=== PATIENT | female | born 1995 | race Caucasian/White ===

== ENCOUNTER 2017-07-02 10:54 | Emergency (ER) | payer MEDICAID ==
[~2017-07-02] VITALS: Ht 157.5 cm; Wt 81.7 kg
[~2017-07-02 10:54] MED LIST: AMOXICILLIN500 MG PO; BIRTH CONTROL; BUPROPION HCL150 M2 PO; CEPHALEXIN500 MG PO; CIPRO500 MG PO; COMPAZINE25 MG PR; FLUOXETINE HCL20 MG PO; IBUPROFEN600 MG PO; LIDOCAINE HCL100 ML MT; NAPROXEN500 MG PO; NORCO 5-325 TA1 EACH PO; NORTRIPTYLINE H25 MG PO; ORTHO TRI-CYCL1 EACH PO; PENICILLIN V P500 MG PO; PRENATAL VITAM1 EACH PO; PROZAC10 MG PO; SEPTRA DS TABL1 EACH PO; TRAMADOL HCL50 MG PO; TYLENOL WITH C1 EACH PO; ULTRAM50 MG PO; VISTARIL25 MG PO; ZOFRAN4 MG PO
[2017-07-02] MEDS ORDERED: MIRENA1 EACH (11:17)
[2017-07-02] MEDS ORDERED: DIFLUCAN150 MG PO (12:27)
== END 2017-07-02 12:55 | disposition home or self-care (01) ==
LOC: ED 10:54
DX: N76.0 Acute vaginitis (principal); F17.200 Nicotine dependence, unspecified, uncomplicated; Z91.040 Latex allergy status; Z88.8 Allergy status to other drugs, medicaments and biological substances; Z79.899 Other long term (current) drug therapy
CPT/HCPCS: 81001; 84703; 99284

== ENCOUNTER 2019-03-06 15:21 | Emergency (ER) | payer OTHER ==
[~2019-03-06] VITALS: Ht 157.5 cm; Wt 81.7 kg
[~2019-03-06 15:21] MED LIST changes: +DIFLUCAN150 MG PO; +MIRENA1 EACH
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
[2019-03-06] MEDS ORDERED: PROCTOFOAM-HC 110 GM PR (17:04)
== END 2019-03-06 17:17 | disposition home or self-care (01) ==
LOC: ED 15:21
DX: O99.612 Diseases of the digestive system complicating pregnancy, second trimester (principal); K62.5 Hemorrhage of anus and rectum; F17.200 Nicotine dependence, unspecified, uncomplicated; Z91.040 Latex allergy status; Z88.8 Allergy status to other drugs, medicaments and biological substances; Z3A.17 17 weeks gestation of pregnancy
CPT/HCPCS: 81001; 99283-25; 99406

== ENCOUNTER 2019-08-06 14:17 | Inpatient (IN) | payer OTHER ==
[~2019-08-06] VITALS: Ht 157.5 cm; Wt 86.0 kg
[~2019-08-06 14:17] MED LIST changes: +PROCTOFOAM-HC 110 GM PR
--- NOTE | 2019-08-07 08:39 | PR ---
[facility] [address], [place] [address] Signed Progress Notes IP Datetime Report Generated by CPN: 08/07/2019 08:38 PROGRESS NOTES: [id number] Impression: Normal progression of labor; Reassuring heart rate Procedures: Artificial ROM Plan: Continue present management Informed Consent Obtain: Vaginal Delivery VITAL SIGNS: [id number] Vital Signs: Reviewed; Within Normal Limits EXAM: [id number] Dilatation: 3.5 Effacement: 70 Station: -2 Uterine Contractions: None MEMBRANES: [id number] Membrane Status: Bulging ROM Note: Reviewed AROM in detail and verbal consent obtained. vertex noted to be well applied. AROM performed without difficulty for moderate amount clear fluid. Pt and baby tolerated well. Comments: Pt seen and examined. Verted well applied to cervix and AROM easily performed. Will expectantly manage. Discussed indication for pitocin augmentation Fetus A: [id number] FHR Baseline: 120 Variability: Moderate 6-25bpm Accelerations: 15X15 Decelerations: None FHR Category: Category I Presentation: Vertex Comments on Fetus A: No evidence of metabolic acidosis Fetus B: [id number] Signing Physician: Parul Wheat DO Copies: ~ *Electronically Signed* 08/07/19 0838 PARUL WHEAT DO PATIENT NAME: SÁNCHEZ ANTOINE KAMLESH PROGRESS NOTE DATE OF : 95 PHYSICIAN: PARUL WHEAT DO RPT #: [id number] REPORT IS CONFIDENTIAL AND NOT TO BE RELEASED WITHOUT AUTHORIZATION
--- NOTE | 2019-08-07 12:15 | PR ---
[facility] [address], [place] [address] Signed Progress Notes IP Datetime Report Generated by CPN: 08/07/2019 12:15 PROGRESS NOTES: [id number] Impression: Reassuring heart rate Procedures: Artificial ROM Plan: Continue present management Informed Consent Obtain: Vaginal Delivery VITAL SIGNS: [id number] Vital Signs: Reviewed; Within Normal Limits EXAM: [id number] Dilatation: 4.0 Effacement: 80 Station: -2 Uterine Contractions: rare MEMBRANES: [id number] Membrane Status: Bulging ROM Note: Reviewed AROM in detail and verbal consent obtained. vertex noted to be well applied. AROM performed without difficulty for moderate amount clear fluid. Pt and baby tolerated well. Comments: Pt seen and evaluated. Doing well. Rare contractions. Due for cervix check in _ 1 hr. If unchanged, will start low dose pit per protocol. Pt understands and agrees. Fetus A: [id number] FHR Baseline: 120 Variability: Moderate 6-25bpm Accelerations: 15X15 Decelerations: None FHR Category: Category I Presentation: Vertex Comments on Fetus A: No evidence of metabolic acidosis Fetus B: [id number] Signing Physician: Parul Wheat DO Copies: ~ *Electronically Signed* 08/07/19 7451 PARUL WHEAT DO PATIENT NAME: SÁNCHEZ ANTOINE KAMLESH PROGRESS NOTE DATE OF : 95 PHYSICIAN: PARUL WHEAT #: [id number] REPORT IS CONFIDENTIAL AND NOT TO BE RELEASED WITHOUT AUTHORIZATION
--- NOTE | 2019-08-07 17:22 | PR ---
[facility] [address], [place] [address] Signed Progress Notes IP Datetime Report Generated by KARLY: 08/07/2019 17:22 PROGRESS NOTES: [id number] Impression: Slow Progression of Labor Procedures: Intrauterine Pressure Catheter; Sterile Vag Exam Plan: Continue present management; Augmentation; Anesthesia consult Informed Consent Obtain: Vaginal Delivery VITAL SIGNS: [id number] Vital Signs: Reviewed; Within Normal Limits EXAM: [id number] Dilatation: 4.0 Effacement: 80 Station: -2 Uterine Contractions: rare MEMBRANES: [id number] Membrane Status: Bulging ROM Note: Reviewed AROM in detail and verbal consent obtained. vertex noted to be well applied. AROM performed without difficulty for moderate amount clear fluid. Pt and baby tolerated well. Comments: Pt seen and examined. Doing well. Cervix unchanged despite pitocin augmentation. Discussed IUPC to improve uterine evaluation. Pt understands and agrees and IUPC placed without difficulty. Will continue to increase pitocin per protocol until adequate contractions noted. Fetus A: [id number] FHR Baseline: 125 Variability: Moderate 6-25bpm Accelerations: 15X15 Decelerations: None FHR Category: Category I Presentation: Vertex Comments on Fetus A: No evidence of metabolic acidosis Fetus B: [id number] Signing Physician: Parul Wheat DO Copies: ~ *Electronically Signed* 08/07/19 4786 PARUL WHEAT DO PATIENT NAME: SÁNCHEZ ANTOINE KAMLESH PROGRESS NOTE DATE OF : 95 PHYSICIAN: PARUL WHEAT DO RPT #: [id number] REPORT IS CONFIDENTIAL AND NOT TO BE RELEASED WITHOUT AUTHORIZATION
--- NOTE | 2019-08-07 20:39 | PR ---
[facility] [address] [place] [address], [place] [address] Signed Progress Notes IP Datetime Report Generated by KARLY: 08/07/2019 20:39 PROGRESS NOTES: [id number] Impression: Normal progression of labor; Reassuring heart rate Procedures: Sterile Vag Exam Plan: Continue present management; Anticipate Vaginal Delivery Informed Consent Obtain: Vaginal Delivery VITAL SIGNS: [id number] Vital Signs: Reviewed; Within Normal Limits EXAM: [id number] Dilatation: 10.0 Effacement: 100 Station: 1 Uterine Contractions: q2 min MEMBRANES: [id number] Membrane Status: Bulging ROM Note: Reviewed AROM in detail and verbal consent obtained. vertex noted to be well applied. AROM performed without difficulty for moderate amount clear fluid. Pt and baby tolerated well. Comments: Pt seen and examined. Becoming uncomfortable w/ contractions. Using nitrous to some effect. Pt now 10cm and +1 station. Anticipate soon. Will set up for delivery Fetus A: [id number] FHR Baseline: 120 Variability: Moderate 6-25bpm Accelerations: 15X15 Decelerations: Variable FHR Category: Category II Presentation: Vertex Comments on Fetus A: No evidence of metabolic acidosis Fetus B: [id number] Signing Physician: Parul Wheat DO Copies: ~ *Electronically Signed* 08/07/192038 PARUL WHEAT DO PATIENT NAME: SÁNCHEZ ANTOINE KAMLESH PROGRESS NOTE DATE OF : 95 PHYSICIAN: PARUL WHEAT DO [facility] #: [id number] REPORT IS CONFIDENTIAL AND NOT TO BE RELEASED WITHOUT AUTHORIZATION
--- NOTE | 2019-08-08 13:55 | PR ---
[facility] [address] [facility] [place], [place] [address] Signed PP Progress Notes Datetime Report Generated by CPN: 08/08/2019 13:55 SUBJECTIVE: [id number] Pain: Within normal limits Nausea/Vomiting: Denies Flatus: Yes Bowel Movement: No Vital Signs: V7025492 Vital Signs: Reviewed; Within Normal Limits EXAM: [id number] Cardiovascular: Normal Respiratory: Normal Abdomen/Uterus: Normal Lochia: Normal Vulva/Perineum: Not Done Breasts: Not Done CVA Tenderness: Normal Extremities: Normal Incision: Not Applicable Progress: Not Applicable Exam Comments: Fundus firm U-2 nontender IMPRESSION/PLAN/PROCEDURES: [id number] Impression: Normal progression Plan: Discharge Procedures: Rhogam Progress Notes: Pt seen and examined. Doing well. Ambulating, voiding, and tolerating full diet. Pain and lochia minimal. Bottle feeding. No fevers/chills/other concerns. Planning Mirena for contraception Signing Physician: Parul Wheat DO Copies: ~ *Electronically Signed* 08/08/19 1358 PARUL WHEAT DO PATIENT NAME: SÁNCHEZ ANTOINE KAMLESH PROGRESS NOTE DATE OF : 95 PHYSICIAN: PARUL WHEAT DO RPT #: [id number] REPORT IS CONFIDENTIAL AND NOT TO BE RELEASED WITHOUT AUTHORIZATION
== END 2019-08-08 21:15 | disposition home or self-care (01) | DRG 807 ==
LOC: FBC 08-07 05:40
PROVIDERS: ADMIT Obstetrics & Gynecology
PROC: 10E0XZZ Delivery of Products of Conception, External Approach (ICD-10-PCS; principal; 2019-08-07)
PROC: 0UQMXZZ Repair Vulva, External Approach (ICD-10-PCS; 2019-08-07)
PROC: 10907ZC Drainage of Amniotic Fluid, Therapeutic from Products of Conception, Via Natural or Artificial Opening (ICD-10-PCS; 2019-08-07)
PROC: 10H07YZ Insertion of Other Device into Products of Conception, Via Natural or Artificial Opening (ICD-10-PCS; 2019-08-07)
PROC: 00HU33Z Insertion of Infusion Device into Spinal Canal, Percutaneous Approach (ICD-10-PCS; 2019-08-07)
PROC: 3E0R3BZ Introduction of Anesthetic Agent into Spinal Canal, Percutaneous Approach (ICD-10-PCS; 2019-08-07)
PROC: 3E0234Z Introduction of Serum, Toxoid and Vaccine into Muscle, Percutaneous Approach (ICD-10-PCS; 2019-08-08)
DX: O99.334 Smoking (tobacco) complicating childbirth (principal); Z37.0 Single live birth; F17.210 Nicotine dependence, cigarettes, uncomplicated; Z3A.39 39 weeks gestation of pregnancy; O69.81X0 Labor and delivery complicated by cord around neck, without compression, not applicable or unspecified; O76 Abnormality in fetal heart rate and rhythm complicating labor and delivery; O26.893 Other specified pregnancy related conditions, third trimester; O71.82 Other specified trauma to perineum and vulva; Z88.8 Allergy status to other drugs, medicaments and biological substances; Z67.11 Type A blood, Rh negative; Z91.040 Latex allergy status
CPT/HCPCS: 36415; 83030; 85027; 86850; 86900; 86901; A9270; J2590; J2790; J2795

== ENCOUNTER 2021-02-22 17:49 | Emergency (ER) | payer OTHER ==
[~2021-02-22] VITALS: Ht 157.5 cm; Wt 76.7 kg
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
== END 2021-02-22 21:42 | disposition home or self-care (01) ==
LOC: ED 17:49
DX: S06.9X9A Unspecified intracranial injury with loss of consciousness of unspecified duration, initial encounter (principal); S40.012A Contusion of left shoulder, initial encounter; J45.909 Unspecified asthma, uncomplicated; G43.909 Migraine, unspecified, not intractable, without status migrainosus; F17.200 Nicotine dependence, unspecified, uncomplicated; V47.5XXA Car driver injured in collision with fixed or stationary object in traffic accident, initial encounter; Y92.411 Interstate highway as the place of occurrence of the external cause; Z91.040 Latex allergy status; Z88.8 Allergy status to other drugs, medicaments and biological substances
CPT/HCPCS: 70450; 73030; 99284-25; A9270

== ENCOUNTER 2021-09-11 10:05 | Emergency (ER) | payer OTHER ==
[~2021-09-11] VITALS: Ht 157.5 cm; Wt 76.7 kg
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
[2021-09-11] MEDS ORDERED: LACTULOSE10 GM/15 M PO (11:05)
== END 2021-09-11 11:35 | disposition home or self-care (01) ==
LOC: ED 10:05
DX: K59.00 Constipation, unspecified (principal); G43.909 Migraine, unspecified, not intractable, without status migrainosus; J45.909 Unspecified asthma, uncomplicated; F17.200 Nicotine dependence, unspecified, uncomplicated; Z91.040 Latex allergy status; Z88.8 Allergy status to other drugs, medicaments and biological substances
CPT/HCPCS: 36415; 74018; 80053; 84703; 85025; 99283-25

== ENCOUNTER 2023-01-08 15:20 | Emergency (ER) | payer OTHER ==
[~2023-01-08] VITALS: Ht 157.5 cm; Wt 85.7 kg
[~2023-01-08 15:20] MED LIST changes: +LACTULOSE10 GM/15 M PO
[2023-01-08 15:39] LABS: BILIRUBIN, URINE NEGATIVE (negative); BLOOD/HGB, URINE LARGE (Negative); KETONE, URINE NEGATIVE (Negative); LEUK ESTERASE, URINE NEGATIVE (negative); NITRITE, URINE NEGATIVE (negative)
[2023-01-08 15:45] LABS: EPITHELIAL CELLS, URINE SQUAMOUS 1+ /lpf (0-1+)
[2023-01-08 15:46] LABS: CRYSTALS, URINE NONE SEEN (0-1+)
[2023-01-08 15:47] LABS: BACTERIA, URINE RARE /hpf (negative); CASTS, URINE NONE SEEN \\lpf; COLLECTION TYPE, URINE CLEAN CATCH; REFLEX CULTURE, URINE No (No)
[2023-01-08 15:53] LABS: BASOPHILS 0.6 % (0-2); EOSINOPHILS 1.1 % (0-6); HEMATOCRIT 42.7 % (35.0-50.0); HEMOGLOBIN 14.4 g/dL (12.0-18.0); LYMPHOCYTES 31.4 % (24-44); MCH 31.9 (27-36); MCHC 33.7 g/dl (30-36); MCV 94.6 fl (81-99); MONOCYTES 4.7 % (0-12); NEUTROPHILS 62.2 % (39-80); PLATELET COUNT 239 K/uL (140-440); RBC 4.51 M/ul (4.3-5.7); RDW 12.9 (10.5-15.0)
--- OUTSIDE RECORDS SUMMARY | 2023-01-08 16:01 | XMS ---
PreManage Notification: SÁNCHEZ ANTOINE Security Ornithology Teacher Events No recent Security Events currently on file CRITERIA MET - Group Notification CARE PROVIDERS -, [place]- Dentist: Health Data Administrator [facility] PHONE: [phone] SUREKHA MATOS Physician Sharepoint Architect 03/07/2019-Current PHONE: Unknown Glenn has no Care Guidelines for this patient. Surya VISIT COUNT (12 MO.) 1 Yann Arvizu TOTAL 2 NOTE: Visits indicate total known visits. ED/UCC VISIT TRACKING (12 MO.) 01/08/2023 15:[address] [facility] TYPE: Emergency COMPLAINT: - VAGINAL BLEEDING 04/02/2022 12:25 [facility] TYPE: Emergency DIAGNOSES: - Cough, unspecified - Viral infection, unspecified - elevated hr, sob - Shortness of Breath INPATIENT VISIT TRACKING (12 MO.) No inpatient visits to display in this time frame [email or web address]
[2023-01-08 16:22] LABS: ABO A; RH NEGATIVE
[2023-01-08 16:23] LABS: ALBUMIN 3.8 g/dL (3.4-5.0); ALBUMIN/GLOBULIN RATIO 1.06 (1.1-2.4); ANION GAP 13.3 (7-21); BILIRUBIN, TOTAL 0.4 ng/dL (0.2-1.0); BUN/CREATININE RATIO 12.3 (6.0-28.6); CREATININE, SERUM 0.65 mg/dL (0.55-1.02); POTASSIUM 3.3 mmol/L (3.5-5.1); PROTEIN, TOTAL 7.4 g/dL (6.4-8.2)
[2023-01-08 18:10] VITALS: BP 105/73
== END 2023-01-08 18:12 | disposition home or self-care (01) ==
LOC: ED 15:20
PROVIDERS: Emergency Medicine
DX: N93.9 Abnormal uterine and vaginal bleeding, unspecified (principal); J45.909 Unspecified asthma, uncomplicated; F17.200 Nicotine dependence, unspecified, uncomplicated; Z88.8 Allergy status to other drugs, medicaments and biological substances; Z91.040 Latex allergy status
CPT/HCPCS: 36415; 80053; 81001; 84702; 85025; 86900; 86901

== ENCOUNTER 2023-04-22 19:49 | Emergency (ER) | payer OTHER ==
[~2023-04-22] VITALS: Ht 157.5 cm; Wt 95.0 kg
[2023-04-22] MEDS ORDERED: MAXITROL EYE DRO5 ML OPTH (20:10)
[2023-04-22 20:23] VITALS: BP 133/76
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
== END 2023-04-22 20:24 | disposition home or self-care (01) ==
LOC: ED 19:49
DX: T15.92XA Foreign body on external eye, part unspecified, left eye, initial encounter (principal); F17.200 Nicotine dependence, unspecified, uncomplicated; W44.9XXA Unspecified foreign body entering into or through a natural orifice, initial encounter; Z88.8 Allergy status to other drugs, medicaments and biological substances; Z91.040 Latex allergy status
CPT/HCPCS: 99283

== ENCOUNTER 2024-02-03 17:32 | Inpatient (IN) | payer OTHER ==
[~2024-02-03] VITALS: Ht 157.5 cm; Wt 97.5 kg
[~2024-02-03 17:32] MED LIST changes: +MAXITROL EYE DRO5 ML OPTH
[2024-02-03] MEDS ORDERED: LACTATED RINGER'S 1,000 ML IV SCH (18:00)
[2024-02-03] MEDS ORDERED: CALCIUM CARBONATE 500 MG CHEW PO PRN (18:00)
[2024-02-03] MEDS ORDERED: LACTATED RINGER'S 1,000 ML IV PRN (18:00)
[2024-02-03] MEDS ORDERED: MAGNESIUM HYDROXIDE/AL HYDROX 30 ML CUP PO PRN (18:00)
[2024-02-03] MEDS ORDERED: OXYTOCIN/DEXTROSE 5% 20 UNITS/100 ML BAG IV SCH (18:15)
[2024-02-03 18:19] LABS: HEMATOCRIT 33.4 % (35.0-50.0); HEMOGLOBIN 11.5 g/dL (12.0-18.0); MCH 30.5 (27-36); MCHC 34.5 g/dl (30-36); MCV 88.4 fl (81-99); RBC 3.78 M/ul (4.3-5.7); RDW 14.4 (10.5-15.0)
[2024-02-03] MEDS ORDERED: OXYTOCIN/0.9 % SODIUM CHLORIDE 500 ML IV SCH ×2 (18:30→20:15)
[2024-02-03 18:56] LABS: ABO A; ANTIBODY SCREEN NEGATIVE; RH NEGATIVE
[2024-02-03 19:39] LABS: AMPHETAMINES, URINE NEGATIVE (NEGATIVE); BARBITURATES, URINE NEGATIVE (NEGATIVE); BENZODIAZEPINE, URINE NEGATIVE (NEGATIVE); BUPRENORPHINE, URINE NEGATIVE (NEGATIVE); CANNABINOID, URINE NEGATIVE (NEGATIVE); COCAINE, URINE NEGATIVE (NEGATIVE); ECSTASY, URINE NEGATIVE (NEGATIVE); FENTANYL, URINE NEGATIVE (NEGATIVE); METHADONE, URINE NEGATIVE (NEGATIVE); OPIATES, URINE NEGATIVE (NEGATIVE); OXYCODONE, URINE NEGATIVE (NEGATIVE); PHENCYCLIDINE, URINE NEGATIVE (NEGATIVE)
[2024-02-03 19:46] VITALS: BP 111/70
[2024-02-04] MEDS ORDERED: ROPIVACAINE 0.2% 200 ML BAG ONE (01:18)
[2024-02-04] MEDS ORDERED: ROPIVACAINE 0.2% 200 ML BAG EPIDURAL SCH (02:00)
[2024-02-04] MEDS ORDERED: LACTATED RINGER'S 500 ML IV PRN (02:00)
[2024-02-04] MEDS ORDERED: ePHEDrine sulfate 5 MG/ML SYRINGE IV PRN (02:00)
[2024-02-04] MEDS ORDERED: LACTATED RINGER'S 2,000 ML IV ONE (02:00)
--- NOTE | 2024-02-04 07:52 | PR ---
[facility] [address], [place] [address] Signed Progress Notes IP Datetime Report Generated by CPN: 02/04/2024 07:52 PROGRESS NOTES: [id number] Impression: Reassuring Heart Rate Other Impressions: Residual forebag Procedures: Artificial ROM; Intrauterine Pressure Catheter; Scalp Electrode; Sterile Vag Exam Plan: Continue Present Management Other Plans: Stop pitocin and restart in _ 1 hr Other Informed Consents: Reviewed adequate pelvis / EFW VITAL SIGNS: [id number] EXAM: [id number] Dilatation: 4.0 Effacement: 60 Station: -3 Contractions: q 2-3 MEMBRANES: [id number] Amniotic Fluid Color: Clear ROM Note: Fore bag ruptured by Dr. Wheat Comments: Pt seen and examined. Doing well. Comfortable w/ epidural. Residual forebag on examination. AROM of forebag for clear fluid, IUPC and FSE placed after verbal consent from patient. Will stop pitocin and restart in _ 1 hr. Reviewed no s/sx of intraamniotic infection. Reviewed adequate pelvis and EFW. All questions answered. FETUS A: [id number] FHR Baseline: 150 Variability: Moderate 6-25bpm Accelerations: 15X15 Decelerations: None FHR Category: Category I Presentation: Vertex Comments on Fetus A: Reassuring FETUS B: [id number] Signing Physician: Parul Wheat DO Copies: ~ *Electronically Signed* 02/04/24 0758 PARUL WHEAT (FARZANEH) DO PATIENT NAME: SÁNCHEZ ANTOINE PROGRESS NOTE DATE OF : 95 PHYSICIAN: PARUL WHEAT (JD) DO RPT #: [id number] REPORT IS CONFIDENTIAL AND NOT TO BE RELEASED WITHOUT AUTHORIZATION
[2024-02-04] MEDS ORDERED: dexmedeTOMIDine HCl 200 MCG/2 ML VIAL ONE (12:19)
[2024-02-04] MEDS ORDERED: LIDOCAINE HCL 2% 5 ML SDV ONE (12:19)
--- NOTE | 2024-02-04 14:47 | PR ---
[facility] [address], [place] [address] Signed Progress Notes IP Datetime Report Generated by CPN: 02/04/2024 14:47 PROGRESS NOTES: [id number] Impression: Reassuring Heart Rate Other Impressions: Unchanged cervix Procedures: Sterile Vag Exam Plan: Continue Present Management Other Plans: Stop pitocin and restart in _ 1 hr Other Informed Consents: Reviewed adequate pelvis / EFW VITAL SIGNS: P6015321 EXAM: [id number] Dilatation: 4.0 Effacement: 60 Station: -3 Contractions: Inadequate on pitocin MEMBRANES: [id number] Amniotic Fluid Color: Clear ROM Note: Fore bag ruptured by Dr. Wheat Comments: Pt seen and examined. Doing well. Comfortable w/ epidural. Cx unchanged on exam despite contractions. ROP position palpated. Discussed options and recommend continued pitocin augmentation. Will monitor for signs of intra-amniotic infection and will minimize SVEs. All questions answered and pt would like to avoid C/S if possible. FETUS A: [id number] FHR Baseline: 150 Variability: Moderate 6-25bpm Accelerations: 15X15 Decelerations: None FHR Category: Category I Presentation: Vertex Comments on Fetus A: Reassuring FETUS B: [id number] Signing Physician: Parul Wheat DO Copies: ~ *Electronically Signed* 02/04/24 1441 PARUL WHEAT (FARZANEH) DO PATIENT NAME: SÁNCHEZ ANTOINE PROGRESS NOTE DATE OF : 95 PHYSICIAN: PARUL WHEAT (JD) DO RPT #: [id number] REPORT IS CONFIDENTIAL AND NOT TO BE RELEASED WITHOUT AUTHORIZATION
[2024-02-04] MEDS ORDERED: BUPIVACAINE HCL 0.25% 10 ML SDV INJ ONE (15:46)
[2024-02-04] MEDS ORDERED: fentaNYL citrate 100 MCG/2 ML VIAL ONE (15:46)
--- NOTE | 2024-02-04 17:57 | PR ---
[facility] [address] [place], [place] [address] Signed Progress Notes IP Datetime Report Generated by CPN: 02/04/2024 17:57 PROGRESS NOTES: [id number] Impression: Normal Progression of Labor; Reassuring Heart Rate Other Impressions: Unchanged cervix Procedures: Sterile Vag Exam Plan: Continue Present Management; Anticipate Vaginal Delivery Other Plans: Stop pitocin and restart in _ 1 hr Informed Consent Obtain: Vaginal Delivery Other Informed Consents: Reviewed adequate pelvis / EFW VITAL SIGNS: I9227983 EXAM: [id number] Dilatation: 9.5 Effacement: 100 Station: -1 Contractions: q 2-3 min MEMBRANES: [id number] Amniotic Fluid Color: Clear ROM Note: Fore bag ruptured by Dr. Wheat Comments: Pt seen and examined w/ decels noted. Rapid cervical change noted and anticipate soon. Reviewed anticipated course of delivery. All questions answered. FETUS A: [id number] FHR Baseline: 150 Variability: Moderate 6-25bpm Accelerations: 15X15 Decelerations: Variable FHR Category: Category II Presentation: Vertex Comments on Fetus A: Reassuring FETUS B: [id number] Signing Physician: Parul Wheat DO Copies: ~ *Electronically Signed* 02/04/24 4653 PARUL WHEAT (FARZANEH) DO PATIENT NAME: SÁNCHEZ ANTOINE PROGRESS NOTE DATE OF : 95 PHYSICIAN: PARUL WHEAT DO (JD) RPT #: [id number] REPORT IS CONFIDENTIAL AND NOT TO BE RELEASED WITHOUT AUTHORIZATION
[2024-02-04] MEDS ORDERED: TRANEXAMIC ACID IN NACL,ISO-OS 100 ML IV ONE (18:11)
[2024-02-04] MEDS ORDERED: OXYCODONE HCL 5 MG TAB PO PRN (19:00)
[2024-02-04] MEDS ORDERED: MAGNESIUM HYDROXIDE/AL HYDROX 30 ML CUP PO PRN (19:00)
[2024-02-04] MEDS ORDERED: ACETAMINOPHEN 325 MG TAB PO PRN (19:00)
[2024-02-04] MEDS ORDERED: OXYTOCIN/0.9 % SODIUM CHLORIDE 500 ML IV SCH (19:00)
[2024-02-04] MEDS ORDERED: CALCIUM CARBONATE 500 MG CHEW PO PRN (19:00)
[2024-02-04] MEDS ORDERED: IBUPROFEN 600 MG TAB PO PRN (19:00)
[2024-02-04] MEDS ORDERED: WITCH HAZEL/GLYCERIN 1 EA PAD TOP PRN (19:00)
[2024-02-04] MEDS ORDERED: HYDROCORTISONE ACETATE 25 MG SUPP PR PRN (19:00)
[2024-02-04] MEDS ORDERED: BENZOCAINE 60 ML AEROSOL TOP PRN (19:00)
[2024-02-04] MEDS ORDERED: OXYCODONE/APAP 5/325 TAB PO PRN (19:00)
[2024-02-04] MEDS ORDERED: MAGNESIUM HYDROXIDE 30 ML UDC PO PRN (19:00)
[2024-02-04] MEDS ORDERED: HYDROCODONE/ACETA 5/325 TAB PO PRN (19:00)
[2024-02-04] MEDS ORDERED: miSOPROStoL 200 MCG TAB PO ONE (20:00)
[2024-02-04] MEDS ORDERED: TRANEXAMIC ACID IN NACL,ISO-OS 1,000 MG/100 ML PIGGYBACK IV ONE (20:30)
[2024-02-04] MEDS ORDERED: SENNOSIDES/DOCUSATE 1 EA TAB PO SCH (21:00)
[2024-02-04] MEDS ORDERED: ACETAMINOPHEN 500 MG TAB PO ONE (21:15)
[2024-02-04] MEDS ORDERED: ondansetron HCL 4 MG/2 ML VIAL IV ONE (21:15)
[2024-02-05 05:36] LABS: HEMATOCRIT 31.6 % (35.0-50.0); HEMOGLOBIN 10.7 g/dL (12.0-18.0); MCH 30.6 (27-36); MCHC 33.7 g/dl (30-36); MCV 90.7 fl (81-99); RBC 3.49 M/ul (4.3-5.7); RDW 14.1 (10.5-15.0)
[2024-02-05 07:01] LABS: ABO A; ANTIBODY SCREEN NEGATIVE; FETAL HEMOGLOBIN SCREEN NEGATIVE; RH NEGATIVE
[2024-02-05 07:02] LABS: RHIG STATUS NOT A CANDIDATE
[2024-02-05] MEDS ORDERED: TRANEXAMIC ACID IN NACL,ISO-OS 1,000 MG/100 ML PIGGYBACK IV ONE (17:15)
--- NOTE | 2024-02-05 18:09 | PR ---
[facility] [address] [place], [place] [address] Signed PP Progress Notes Datetime Report Generated by CPN: 02/05/2024 18:09 SUBJECTIVE: [id number] Pain: Within Normal Limits Nausea/Vomiting: Denies Flatus: Yes Vital Signs: [id number] Vital Signs: Reviewed; Within Normal Limits EXAM: Met Cardiovascular: Normal Respiratory: Normal Abdomen/Uterus: Normal Lochia: Not Done Vulva/Perineum: Not Done Breasts: Not Done CVA Tenderness: Normal Extremities: Normal Incision: Not Applicable Progress: Not Applicable Exam Comments: Fundus firm U-2 IMPRESSION/PLAN/PROCEDURES: [id number] Impression: Normal Progression Plan: Discharge Progress Notes: Pt seen and examined. Doing well. Ambulating, voiding, and tolerating full diet. Pain and lochia minimal. Bottlefeeding. No concerns. Desires d/c home. Unsure of pp contraceptive plans. Reviewed d/c instructions and medications. All questions answered. Signing Physician: Parul Wheat DO Copies: ~ *Electronically Signed* 02/05/24 2611 PARUL WHEAT (FARZANEH) DO PATIENT NAME: SÁNCHEZ ANTOINE PROGRESS NOTE DATE OF : 95 PHYSICIAN: PARUL WHEAT) DO RPT #: [id number] REPORT IS CONFIDENTIAL AND NOT TO BE RELEASED WITHOUT AUTHORIZATION
== END 2024-02-05 19:15 | disposition home or self-care (01) | DRG 807 ==
LOC: FBCO 17:32 → FBC 17:35
PROVIDERS: Obstetrics & Gynecology; ADMIT Obstetrics & Gynecology; ATTEND Obstetrics & Gynecology
PROC: 10E0XZZ Delivery of Products of Conception, External Approach (ICD-10-PCS; principal; 2024-02-04)
PROC: 3E0R3BZ Introduction of Anesthetic Agent into Spinal Canal, Percutaneous Approach (ICD-10-PCS; 2024-02-04)
PROC: 00HU33Z Insertion of Infusion Device into Spinal Canal, Percutaneous Approach (ICD-10-PCS; 2024-02-04)
PROC: 10H07YZ Insertion of Other Device into Products of Conception, Via Natural or Artificial Opening (ICD-10-PCS; 2024-02-04)
DX: O76 Abnormality in fetal heart rate and rhythm complicating labor and delivery (principal); Z37.0 Single live birth; O69.81X0 Labor and delivery complicated by cord around neck, without compression, not applicable or unspecified; Z3A.39 39 weeks gestation of pregnancy; O99.334 Smoking (tobacco) complicating childbirth; F17.210 Nicotine dependence, cigarettes, uncomplicated
CPT/HCPCS: 01960; 36415; 80307; 83030; 85027; 86850; 86900; 86901; A9270; J2001; J2405; J2790; J2795; J3010; J7121